=== PATIENT | male | born 1955 | race Caucasian/White ===

== ENCOUNTER → 2020-08-20 16:17 | Outpatient (CLI) | payer MEDICARE, OTHER, SELFPAY ==
--- NOTE | 2020-08-20 | DI.CT.S_ITS ---
PROCEDURE: CT SINUS SCREEN WO CON INDICATIONS: Chronic pansinusitis TECHNIQUE: Noncontrast 3.0 mm axial images acquired from the frontal sinuses to the mid-sella, with coronal and sagittal reformats. For radiation dose reduction, the following was used: automated exposure control, adjustment of mA and/or kV according to patient size. COMPARISON: None. FINDINGS: Image quality: Excellent. Maxillary Sinuses: There is a mucous retention cyst seen within the inferior right maxillary sinus, with mild mucosal thickening seen elsewhere. Moderate mucosal thickening is seen within the inferior left maxillary sinus. No significant bony abnormality can be seen. Ethmoid Air Cells: No bony remodeling or destruction. Sinuses are clear. Sphenoid Sinuses: No bony remodeling or destruction. Sinuses are clear. Frontal Sinuses: No bony remodeling or destruction. Sinuses are clear. Ostiomeatal Complexes: Ostiomeatal complexes are patent, yet there constitutionally narrowed, with bilateral Payton cells. Miscellaneous: Visualized intra-orbital contents are normal. There is a prominent right-sided ernie bullosa. There is [id number] leftward nasal septal deviation. IMPRESSION: Focal maxillary sinus disease is seen, with moderate mucosal thickening involving the left maxillary sinus. Constitutionally narrowed ostiomeatal complexes, with bilateral Payton cells. There is a prominent right-sided ernie bullosa, with [id number] leftward nasal septal deviation. Dictated by: Wilian Chang M.D. on 08/20/2020 at 15:53 Approved by: Wilian Chang M.D. on 08/20/2020 at 15:56
== END ==
PROVIDERS: PCP Family Medicine; Referring Provider Otolaryngology; Visit Provider Otolaryngology
DX: J32.4 Chronic pansinusitis (principal); J34.89 Other specified disorders of nose and nasal sinuses; R51.9 Headache, unspecified
CPT/HCPCS: 70486

== ENCOUNTER → 2020-10-16 15:47 | Outpatient (CLI) | payer MEDICARE, OTHER, SELFPAY ==
[2020-10-16 16:10] LABS: COVID19 -Nasal RAPID Negative (Negative)
== END ==
PROVIDERS: PCP Family Medicine; Visit Provider Physician Assistant
DX: Z20.822 Contact with and (suspected) exposure to COVID-19 (principal)
CPT/HCPCS: 87635

== ENCOUNTER 2020-10-17 06:53 | Day surgery (SDC) | payer MEDICARE, OTHER, SELFPAY ==
[2020-10-15 13:36] VITALS: BMI 28.8
[2020-10-17] VITALS (8 sets, daily range): BP systolic 145–162; BP diastolic 84–100; PULSE 69–99; RESP 9–17; TEMP 36.3–36.6; O2SAT 94–99; BMI 28.8
[2020-10-17] MEDS: OXYMETAZOLINE NASAL SPRAY 15 ML 2 SPRAYS NASAL (07:35)
[2020-10-17] MEDS: LACTATED RINGERS 1,000 ML 42 ML IV (07:35)
--- NOTE | 2020-10-17 08:17 | PM.PREOP ---
Pre-operative Note COVID-19 COVID-19 status: Result pending Interval Note History & Physical reviewed/Exam performed by Physician: Yes Changes to H&P: No
--- NOTE | 2020-10-17 08:17 | PM.HP.1 ---
History of Present Illness History of Present Illness Date Patient Seen: 10/17/20 Time Patient Seen: 08:18 Chief complaint: Nasal airway obstruction Narrative: 64-year-old male with persistent nasal obstruction despite medical therapy, known left 3+ septal deviation and inferior turbinate hypertrophy as well as right ernie bullosa. Patient last seen in clinic 09/09/2020, no interval changes, elects to proceed with surgery. No recent cough, cold, or fever. Patient History Medical History HLD (hyperlipidemia) HTN (hypertension) Hx of multiple concussions Nasal congestion Rhinorrhea Surgical History H/O cardiac catheterization History of ankle surgery (1997) History of arthroplasty of right knee (12/13/14) History of arthroscopy of left shoulder (1997) History of arthroscopy of right shoulder (2008) History of open reduction and internal fixation (ORIF) procedure (2003) History of open reduction and internal fixation (ORIF) procedure (2001) History of surgery (1995) History of tympanoplasty Hx of arthroscopy of right knee (03/05/16) Hx of tonsillectomy Family & Social History Social History: household members friend(s) Tobacco & Substance use: Smoking Status Never smoker alcohol intake current alcohol intake frequency a few times a week Substance Use Type former substance user Meds Home Medications and Allergies Home Medications Medication Instructions Recorded Confirmed Type amlodipine 5 mg PO DAILY 10/15/20 10/17/20 History aspirin [Aspir-Low] 81 mg PO DAILY 10/15/20 10/17/20 History cetirizine [Zyrtec] 10 mg PO DAILY 10/15/20 10/17/20 History diclofenac sodium 75 mg PO BID 10/15/20 10/17/20 History losartan 75 mg PO DAILY 10/15/20 10/17/20 History simvastatin 40 mg PO BEDTIME 10/17/20 10/17/20 History Allergies Allergy/AdvReac Type Severity Reaction Status Date / Time No Known Drug Allergies Allergy Verified 10/17/20 07:28 Review of Systems Review of Systems ROS: Yes All systems reviewed with the patient and are negative except as otherwise documented Exam Vital Signs (past 8 hours): - 10/17/20 07:36 Temperature 97.4 F L Pulse Rate 69 Respiratory Rate 16 Blood Pressure 157/95 H Pulse Oximetry 99 Oxygen Delivery Method Room Air Oxygen Flow Rate 0 Narrative Exam Narrative: Well-developed well-nourished male no acute distress heart regular rate and rhythm without murmur, lungs clear to auscultation bilaterally Assessment & Plan Assessment & Plan narrative: Assessment: Nasal obstruction, septal deviation, 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
--- NOTE | 2020-10-17 08:20 | P.OP_ITS ---
Operative Date/Time/Diagnoses Date of procedure: 10/17/20 Time of procedure: 10:15 Pre-op diagnosis: Nasal airway obstruction, septal deviation, inferior turbinate hypertrophy, right ernie bullosa Post-op diagnosis: same Procedure & Clinicians Procedure: Septoplasty, right ernie bullosa resection, bilateral inferior turbinate reduction via intramural cautery Same procedure as scheduled: Yes Indications: 64-year-old male with the above diagnoses, incompletely managed with medical therapy, presents to the above procedures. Following discussion of the material risks benefits complications and alternatives, the patient elected to proceed. Surgeon: Monico Cornejo Click Yes if Unassisted: Yes Anesthesia Type: General and Local Operative Notes Findings: 3+ left septal deviation, moderate inferior turbinate hypertrophy, large ernie bullosa of the right middle turbinate resected, no flap perforations Closure Type: primary Specimen(s): none sent Estimated Blood Loss (mL): 100 Blood products transfused: none Procedure in detail: Following identification and confirmation of consent as well as preoperative Afrin nasal spray, the patient was brought to the operating room suite and placed in the supine position. General endotracheal anesthesia was administered. I infiltrated the septum widely bilaterally with 1% lidocaine 1 100,000 epinephrine followed by temporary packing with cotton with Afrin and 4% lidocaine. Following sterile prep and drape, the packing was removed and I performed a right carrington-transfixion incision, elevated the right mucoperichondrial and mucoperiosteal flap. I disarticulated near the bony/cartilaginous junction and elevated the left mucoperiosteal flap. Deviated portions of the perpendicular plate of the ethmoid and vomer were resected. The residual quadrilateral cartilage was further straightened by trimming it inferiorly as well as reducing the maxillary crest. A 2 mm strip of cartilage paralleling the residual 1 cm dorsal and caudal strut was resected to further straighten the quadrilateral cartilage. The hemitransfixion incision was closed with interrupted 5 0 chromic followed by a running 4 0 plain gut mattress suture to reapproximate the septal flaps. At case completion, 20/1000th of an inch silastic splints were placed bilaterally, sutured anteriorly with a single 4 0 nylon. The head of each inferior turbinate had been previously infiltrated with additional local anesthetic and a 25 gauge spinal needle was used to impale the length of the turbinate, with cautery on a setting of 15 activated on slow withdrawal. The turbinates were then outfractured. The posterior and anterior superior insertion of the right middle turbinate was infiltrated with additional local anesthetic under endoscopic guidance via spinal needle. The lateral portion of the ernie bullosa of the middle tu rbinate was resected with the microdebrider, forceps, and back-biting forceps. The procedure completed, sponge and needle counts were correct and the patient was extubated in the operating room and taken to recovery room in stable condition without known complication. Postoperative care: Nasal saline every hour while awake, Vaseline or Polysporin to the nostrils at all times, begin irrigations t.i.d. beginning pod 1. Humidifier at the bedside blowing on the face. Tylenol alternating with Advil for pain control, oxycodone if necessary for breakthrough pain. Complications: none Post-operative Condition: stable Disposition: same day surgery Plan for aftercare: Nasal saline every hour while awake, begin irrigations t.i.d. tomorrow. Polysporin to the nostrils at all times, Tylenol alternating with Advil for pain control, oxycodone for breakthrough pain. Elevate head of bed, no nose blowing, no straining for 2 weeks. Follow-up in 1 week for nasal splint removal.
--- NOTE | 2020-10-17 09:08 | SUR.OPER ---
Supine on padded OR bed, head on pillow, arm padded and tucked at side, legs uncrossed, safety belt at thigh, tape over blanket over lower legs .
[2020-10-17] MEDS: LIDOCAINE 1% W/EPI 20 ML INJ (09:12)
[2020-10-17] MEDS: ACETAMINOPHEN 325 MG TABLET 975 MG PO (10:41)
[2020-10-17] MEDS: OXYCODONE IR 5 MG TABLET PO ×2 (10:42→11:13)
--- NOTE | 2020-10-17 11:23 | SUR.PHASEII ---
Assumed care from ERICK Reddy, Pt rates pain still high, HOD slightly elevated, ice to area. Medicated with another oxycodone. d/c instructions discussed pt voiced an understanding.
--- NOTE | 2020-10-17 13:05 | SUR.PHASEII ---
Pt left when ready and left in stable condition, dressing remained c/d/i. and pt stated pain was tolerable on discharge.
== END 2020-10-17 11:45 | disposition home or self-care (01) ==
PROVIDERS: PCP Family Medicine; Referring Provider Otolaryngology; Visit Provider Otolaryngology
PROC: (CPT 30520; principal; 2020-10-17 08:45)
DX: J34.2 Deviated nasal septum (principal); J34.89 Other specified disorders of nose and nasal sinuses; J34.3 Hypertrophy of nasal turbinates; J98.8 Other specified respiratory disorders
CPT/HCPCS: 30520; 31240; 30802; A9270; J1100; J2250; J2405; J2704; J3010